=== PATIENT | female | born 2000 | race Caucasian/White ===

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

== ENCOUNTER 2022-03-26 23:00 | Day surgery (SDC) | payer BC ==
[2022-03-26 23:32] VITALS: BMI 43.3
[2022-03-26] MEDS ORDERED: hydrALAZINE 20 MG/ML VIAL SLOW IVP PRN (23:49)
[2022-03-27 00:20] LABS: Fetal Membranes Rupture No Membranes Rupture (No Rupture)
== END 2022-03-27 00:37 | disposition home or self-care (01) ==
LOC: CSHLD/OP 23:00
PROVIDERS: ATTEND Obstetrics & Gynecology
DX: O99.891 Other specified diseases and conditions complicating pregnancy (principal); N89.8 Other specified noninflammatory disorders of vagina; Z3A.24 24 weeks gestation of pregnancy; Z79.899 Other long term (current) drug therapy
CPT/HCPCS: 84112; 99283

== ENCOUNTER 2022-04-12 15:49 | Day surgery (SDC) | payer BC ==
[2022-04-12 16:33] VITALS: BMI 41.5
[2022-04-12] MEDS ORDERED: hydrALAZINE 20 MG/ML VIAL SLOW IVP PRN (16:59)
[2022-04-12 17:46] LABS: Bilirubin 1+ (Negative); Blood, Urine Negative (Negative); Clarity Slightly Cloudy (Clear); Glucose, Urine (Dipstick) Normal (Negative); Ketone, Urine Negative (Negative); Leukocyte 25 (Negative); Nitrite Negative (Negative); Protein, Urine (Dipstick) 15 mg/dl (Neg-Trace)
[2022-04-12 17:53] LABS: Urine Culture Reflex No No
[2022-04-12] MEDS ORDERED: Acetaminophen 500 MG TAB PO SCH (18:00)
[2022-04-12 18:07] LABS: Bacteria/HPF 1+ HPF (None Seen); RBC/HPF 0-3 HPF (0-3); WBC/HPF 0-3 HPF (0-3)
[2022-04-12 18:08] LABS: Other Microscopic Description SEE COMMENTS
[2022-04-13 16:55] LABS: Chlamydia by PCR Not Detected (NotDetected); GC by PCR Not Detected (NotDetected)
== END 2022-04-12 18:30 | disposition home or self-care (01) ==
LOC: CSHLD/OP 15:49
PROVIDERS: ATTEND Obstetrics & Gynecology
DX: O99.891 Other specified diseases and conditions complicating pregnancy (principal); R10.30 Lower abdominal pain, unspecified; O99.512 Diseases of the respiratory system complicating pregnancy, second trimester; J45.909 Unspecified asthma, uncomplicated; Z3A.26 26 weeks gestation of pregnancy; Z86.16 Personal history of COVID-19
CPT/HCPCS: 81001; 87480; 87491; 87510; 87591; 87660; 99283

== ENCOUNTER 2022-04-17 19:56 | Day surgery (SDC) | payer BC ==
[2022-04-17 20:23] VITALS: BMI 43.9
[2022-04-17] MEDS ORDERED: hydrALAZINE 20 MG/ML VIAL SLOW IVP PRN (20:34)
[2022-04-17] MEDS ORDERED: Lactated Ringer's 1,000 ML IV SCH (20:45)
[2022-04-17] MEDS ORDERED: Acetaminophen 500 MG TAB PO SCH (20:45)
[2022-04-17] MEDS ORDERED: diphenhydrAMINE 50 MG/ML VIAL IVP SCH (21:00)
[2022-04-17] MEDS: Metoclopramide HCl 10 MG/2 ML VIAL IVP SCH ×2 (21:24→22:15)
[2022-04-17 21:29] LABS: #Monocytes 0.5 10x3/uL (0.0-1.1); #Neutrophils 6.8 10x3/uL (1.5-8.4); %Basophils 0.1 % (0.0-2.0); %Eosinophils 0.1 % (0.0-6.0); %Lymphocytes 19.1 % (18.0-47.0); %Monocytes 5.6 % (0.0-10.0); %Neutrophils 74.8 % (40.0-75.0); Hemoglobin 12.3 g/dL (12.0-15.5); Mean Corpuscular HGB CONC 36.4 g/dL (32.0-36.0); Mean Corpuscular Hemoglobin 32.2 pg (27.0-33.0); Mean Corpuscular Volume 88.5 fl (81.6-98.3); Mean Platelet Volume 9.1 fl (7.4-10.4); Platelet Count 301 10x3/uL (150-450); RBC Distribution Width 12.7 % (11.5-14.5); Red Blood Cell (RBC) Count 3.82 10x6/uL (3.90-5.03); White Blood Cell (WBC) Count 9.1 10x3/uL (3.5-10.5)
[2022-04-17 22:15] LABS: ALT (SGPT) 24 U/L (8-55); AST (SGOT) 19 U/L (5-34); Albumin 3.6 g/dL (3.5-5.0); Alkaline Phosphatase 148 U/L (40-100); Anion Gap 13 mmol/L (10-20); BUN (Urea Nitrogen) 8 mg/dL (7.0-18.7); Bilirubin, Total 1.2 mg/dL (0.2-1.2); Calc. Creatinine Clearance 274 mL/min (70-130); Calcium 9.2 mg/dL (7.8-10.44); Carbon Dioxide 23 mmol/L (22-29); Chloride 105 mmol/L (98-107); Glucose 82 mg/dL (70-105); Potassium 4.2 mmol/L (3.5-5.1); Protein, Total 6.6 g/dL (6.0-8.3); Sodium 137 mmol/L (136-145)
[2022-04-17 22:30] LABS: Bilirubin 3+ (Negative); Blood, Urine Negative (Negative); Clarity Clear (Clear); Glucose, Urine (Dipstick) Normal (Negative); Ketone, Urine 5 mg/dL (Negative); Leukocyte 100 (Negative); Nitrite Positive (Negative); Protein, Urine (Dipstick) 30 mg/dl (Neg-Trace); Urobilinogen 12 mg/dL (Less than 2)
[2022-04-17 22:38] LABS: Bacteria/HPF 1+ HPF (None Seen); Calcium Oxalate Crystals 1+ HPF (None Seen); RBC/HPF 0-3 HPF (0-3); Squamous Epithelial Greater than 50 HPF (0-3); WBC/HPF 21-50 HPF (0-3)
[2022-04-17 22:46] LABS: Creatinine, Urine 416.19 mg/dL (47-110)
== END 2022-04-17 23:00 | disposition home or self-care (01) ==
LOC: CSHLD/OP 19:56
PROVIDERS: ATTEND Obstetrics & Gynecology
DX: O99.352 Diseases of the nervous system complicating pregnancy, second trimester (principal); G43.909 Migraine, unspecified, not intractable, without status migrainosus; O99.212 Obesity complicating pregnancy, second trimester; O99.612 Diseases of the digestive system complicating pregnancy, second trimester; K21.9 Gastro-esophageal reflux disease without esophagitis; O10.912 Unspecified pre-existing hypertension complicating pregnancy, second trimester; Z3A.27 27 weeks gestation of pregnancy; Z79.899 Other long term (current) drug therapy
CPT/HCPCS: 36415; 80053; 81001; 82570; 84156; 85025; 96360; 96374; 96375; 99284; J1200; J2765

== ENCOUNTER → 2022-04-22 | Day surgery (SDC) | payer BC | LOC: CSHSDC/OP 14:25 | PROVIDERS: ATTEND Obstetrics & Gynecology | DX: O36.0190 Maternal care for anti-D [Rh] antibodies, unspecified trimester, not applicable or unspecified (principal); Z3A.00 Weeks of gestation of pregnancy not specified ==

== ENCOUNTER 2022-04-30 14:20 | Day surgery (SDC) | payer BC | END 2022-04-30 15:25 | disposition home or self-care (01) | LOC: CSHSDC/OP 14:20 | PROVIDERS: ATTEND Obstetrics & Gynecology | DX: Z29.13 Encounter for prophylactic Rho(D) immune globulin (principal); Z3A.29 29 weeks gestation of pregnancy; Z67.41 Type O blood, Rh negative | CPT/HCPCS: 96372 ==

== ENCOUNTER 2022-05-29 10:58 | Day surgery (SDC) | payer BC ==
[2022-05-29] MEDS ORDERED: hydrALAZINE 20 MG/ML VIAL SLOW IVP PRN (12:08)
== END 2022-05-29 14:03 | disposition home or self-care (01) ==
LOC: CSHLD/OP 10:58
PROVIDERS: ATTEND Obstetrics & Gynecology
DX: O36.8130 Decreased fetal movements, third trimester, not applicable or unspecified (principal); Z3A.33 33 weeks gestation of pregnancy
CPT/HCPCS: 76819

== ENCOUNTER 2022-05-30 16:14 | Day surgery (SDC) | payer BC ==
[2022-05-30 16:54] VITALS: BMI 42.7
[2022-05-30] MEDS ORDERED: hydrALAZINE 20 MG/ML VIAL SLOW IVP PRN (18:01)
[2022-05-30] MEDS ORDERED: Lactated Ringer's 1,000 ML IV SCH ×2 (18:15→20:15)
[2022-05-30 18:23] LABS: Bilirubin 3+ (Negative); Blood, Urine Negative (Negative); Clarity Clear (Clear); Glucose, Urine (Dipstick) Normal (Negative); Ketone, Urine 5 mg/dL (Negative); Leukocyte 25 (Negative); Nitrite Negative (Negative); Protein, Urine (Dipstick) 30 mg/dl (Neg-Trace); Urobilinogen 12 mg/dL (Less than 2)
[2022-05-30 18:29] LABS: Urine Culture Reflex No No
[2022-05-30 18:32] LABS: RBC/HPF None Seen HPF (0-3); Squamous Epithelial 0-3 HPF (0-3); WBC/HPF 0-3 HPF (0-3)
[2022-05-30 18:33] LABS: Bacteria/HPF 2+ HPF (None Seen)
[2022-05-30] MEDS ORDERED: CEFAZOLIN 2 GM in Sodium Chloride 0.9% 100 ML IVPB SCH (20:15)
[2022-05-30] MEDS ORDERED: Butorphanol Tartrate 1 MG/ML VIAL SLOW IVP SCH (22:30)
[2022-05-30] MEDS ORDERED: Cephalexin 500 MG CAP PO SCH (23:59)
== END 2022-05-31 04:05 | disposition home or self-care (01) ==
LOC: CSHLD/OP 16:14
PROVIDERS: ATTEND Obstetrics & Gynecology
DX: O47.03 False labor before 37 completed weeks of gestation, third trimester (principal); O36.8130 Decreased fetal movements, third trimester, not applicable or unspecified; O99.891 Other specified diseases and conditions complicating pregnancy; N89.8 Other specified noninflammatory disorders of vagina; R03.0 Elevated blood-pressure reading, without diagnosis of hypertension; O09.293 Supervision of pregnancy with other poor reproductive or obstetric history, third trimester; Z3A.33 33 weeks gestation of pregnancy; Z86.19 Personal history of other infectious and parasitic diseases; Z79.899 Other long term (current) drug therapy
CPT/HCPCS: 81001; 87086; 87480; 87510; 87660; J0595; J0690; J3490

== ENCOUNTER 2022-06-11 16:17 | Day surgery (SDC) | payer BC ==
[2022-06-11 17:05] VITALS: BMI 44.3
[2022-06-11 17:55] LABS: Fetal Membranes Rupture No Membranes Rupture (No Rupture)
[2022-06-11] MEDS ORDERED: hydrALAZINE 20 MG/ML VIAL SLOW IVP PRN (18:15)
== END 2022-06-11 21:05 | disposition home or self-care (01) ==
LOC: CSHLD/OP 16:17
PROVIDERS: ATTEND Obstetrics & Gynecology
DX: O99.891 Other specified diseases and conditions complicating pregnancy (principal); N89.8 Other specified noninflammatory disorders of vagina; O09.293 Supervision of pregnancy with other poor reproductive or obstetric history, third trimester; Z3A.35 35 weeks gestation of pregnancy
CPT/HCPCS: 76815; 84112; 87480; 87510; 87660; 99283

== ENCOUNTER 2022-06-23 14:24 | Emergency (ER) | payer BC ==
[2022-06-23] MEDS ORDERED: Albuterol Sulfate 2.5 mg/3 ml Neb ONE (15:12)
[2022-06-23 16:07] LABS: SARS-CoV-2 NAA Rapid Test DETECTED (NotDetected)
== END 2022-06-23 18:00 | disposition home or self-care (01) ==
LOC: CSHERS 14:24 → EDSTATUS 14:26 → CSHERS 18:00
DX: O98.513 Other viral diseases complicating pregnancy, third trimester (principal); U07.1 COVID-19; O99.513 Diseases of the respiratory system complicating pregnancy, third trimester; J45.909 Unspecified asthma, uncomplicated; Z3A.37 37 weeks gestation of pregnancy
CPT/HCPCS: 71045; 93005; J7611

== ENCOUNTER 2022-06-26 13:59 | Inpatient (IN) | payer BC ==
[~2022-06-26 13:59] MED LIST: Bupivacaine/Epinephrine 0.25% 30 ML VIAL ONE
[2022-06-26] MEDS ORDERED: hydrALAZINE 20 MG/ML VIAL SLOW IVP PRN ×2 (15:18→17:05)
[2022-06-26 15:35] LABS: Bilirubin 3+ (Negative); Blood, Urine Negative (Negative); Clarity Slightly Cloudy (Clear); Glucose, Urine (Dipstick) Normal (Negative); Ketone, Urine Negative (Negative); Leukocyte 100 (Negative); Nitrite Negative (Negative); Protein, Urine (Dipstick) 30 mg/dl (Neg-Trace); Specific Gravity, Urine 1.025 (1.002-1.036)
[2022-06-26 15:51] LABS: Urine Culture Reflex No No
[2022-06-26 15:52] LABS: Bacteria/HPF 2+ HPF (None Seen); RBC/HPF 0-3 HPF (0-3)
[2022-06-26] MEDS ORDERED: Lidocaine 1% (PF) 30 ML VIAL SC PRN (17:05)
[2022-06-26] MEDS ORDERED: Promethazine HCl 25 MG/ML VIAL IM PRN (17:05)
[2022-06-26] MEDS ORDERED: NS w/ Oxytocin 30 units 500 ML IV SCH (17:15)
[2022-06-26 17:48] LABS: Hemoglobin 12.9 g/dL (12.0-15.5); Mean Corpuscular HGB CONC 34.9 g/dL (32.0-36.0); Mean Corpuscular Hemoglobin 30.7 pg (27.0-33.0); Mean Corpuscular Volume 88.1 fl (81.6-98.3); Mean Platelet Volume 9.6 fl (7.4-10.4); Platelet Count 288 10x3/uL (150-450); White Blood Cell (WBC) Count 6.6 10x3/uL (3.5-10.5)
[2022-06-26 18:03] LABS: ALT (SGPT) 22 U/L (8-55); AST (SGOT) 19 U/L (5-34); Albumin 3.2 g/dL (3.5-5.0); Alkaline Phosphatase 242 U/L (40-100); Anion Gap 14 mmol/L (10-20); BUN (Urea Nitrogen) 7 mg/dL (7.0-18.7); Calc. Creatinine Clearance 0 mL/min (70-130); Carbon Dioxide 20 mmol/L (22-29); Chloride 104 mmol/L (98-107); Estimated GFR 129; Globulin 2.6 g/dL (2.4-3.5); Glucose 81 mg/dL (70-105); Potassium 4.4 mmol/L (3.5-5.1); Protein, Total 5.8 g/dL (6.0-8.3); Sodium 134 mmol/L (136-145)
[2022-06-26 18:21] LABS: Hep B Surf Ag Non-Reactive S/CO (NonReactive); Syphilis Antibody Nonreactive (Nonreactive); Syphilis Antibody Index 0.03 S/CO (<1.00 Non-Reactive)
[2022-06-26 18:27] LABS: HBSAg Index 0.17 S/CO (0-0.99)
[2022-06-26 18:42] VITALS: BMI 46.0
[2022-06-27] MEDS ORDERED: Calcium Carbonate 500 MG ChewTAB PO PRN (00:04)
[2022-06-27] MEDS ORDERED: Ibuprofen 800 MG TAB PO PRN (00:18)
[2022-06-27] MEDS ORDERED: Diphenoxylate HCl/Atropine Tablet PO PRN ×2 (00:18)
[2022-06-27] MEDS ORDERED: Misoprostol 200 MCG TAB PR PRN (00:18)
[2022-06-27] MEDS ORDERED: Docusate 100 MG CAP PO PRN (00:18)
[2022-06-27] MEDS ORDERED: Zolpidem Tartrate 5 MG TAB PO PRN (00:18)
[2022-06-27] MEDS ORDERED: Promethazine HCl 25 MG/ML VIAL IM PRN (00:18)
[2022-06-27] MEDS ORDERED: Acetaminophen 500 MG TAB PO PRN (00:18)
[2022-06-27] MEDS ORDERED: Carboprost 250 MCG/ML AMP IM PRN (00:18)
[2022-06-27] MEDS ORDERED: HYDROcodone/Acetaminophen 5/325 mg Tablet PO PRN (00:18)
[2022-06-27] MEDS ORDERED: Ondansetron PF 4 MG/2 ML Vial IVP PRN (00:18)
[2022-06-27] MEDS ORDERED: hydrALAZINE 20 MG/ML VIAL SLOW IVP PRN (00:18)
[2022-06-27] MEDS ORDERED: Lidocaine 1% (PF) 30 ML VIAL SC PRN (00:18)
[2022-06-27] MEDS ORDERED: NS w/ Oxytocin 30 units 500 ML IV SCH ×2 (00:30)
[2022-06-27] MEDS ORDERED: Penicillin G Potassium 5 MILL.UNITS in Sodium Chloride 0.9% 100 ML IVPB SCH (00:30)
[2022-06-27] MEDS ORDERED: Lactated Ringer's 1,000 ML IV SCH (00:30)
[2022-06-27] MEDS: Misoprostol 100 MCG TAB VAG SCH ×4 (01:20→21:04)
[2022-06-27 02:12] LABS: HIV (1/2) Antibody/Antigen Non-Reactive (NonReactive); HIV 1/2 INDEX 0.09 S/CO (<1.00)
[2022-06-27] MEDS: Ondansetron PF 4 MG/2 ML Vial IVP PRN ×3 (03:57→20:35)
[2022-06-27] MEDS ORDERED: Penicillin G Potassium 5 MILL.UNITS VIAL ONE (12:51)
[2022-06-27] MEDS ORDERED: Sodium Chloride 0.9% 100 ML ONE (12:51)
[2022-06-27] MEDS: Penicillin G 2.5 MILL.units 2.5 MILL.UNITS in Premix Bag 1 BAG IVPB SCH ×2 (17:01→20:52)
[2022-06-27] MEDS: Lactated Ringer's 1,000 ML IV SCH (18:04)
[2022-06-28] MEDS ORDERED: Misoprostol 200 MCG TAB ONE (00:36)
[2022-06-28] MEDS ORDERED: Carboprost 250 MCG/ML AMP ONE (00:36)
[2022-06-28] MEDS: Misoprostol 100 MCG TAB VAG SCH ×4 (02:06→23:58)
[2022-06-28] MEDS: Penicillin G 2.5 MILL.units 2.5 MILL.UNITS in Premix Bag 1 BAG IVPB SCH ×6 (02:10→23:57)
[2022-06-28] MEDS: Ondansetron PF 4 MG/2 ML Vial IVP PRN ×2 (03:47→11:29)
[2022-06-28] MEDS ORDERED: Fentanyl 2 mcg/Bup 0.1% Cadd 100 ML ONE (13:23)
[2022-06-28] MEDS ORDERED: diphenhydrAMINE 50 MG/ML VIAL IVP PRN (14:11)
[2022-06-28] MEDS ORDERED: Promethazine HCl 25 MG/ML VIAL IM PRN ×2 (14:11→23:50)
[2022-06-28] MEDS ORDERED: Ondansetron PF 4 MG/2 ML Vial IVP PRN ×2 (14:11→23:50)
[2022-06-28] MEDS ORDERED: Acetaminophen 325 MG TAB PO PRN (14:11)
[2022-06-28] MEDS ORDERED: Lactated Ringer's 500 ML IV PRN (14:11)
[2022-06-28] MEDS ORDERED: ePHEDrine Sulfate 50 MG/10 ML VIAL SLOW IVP PRN (14:11)
[2022-06-28] MEDS ORDERED: Naloxone HCl 0.4 mg/ml Vial IVP PRN ×2 (14:11)
[2022-06-28] MEDS ORDERED: Moisturizing Cream (Eucerin) 113 GM JAR TOP PRN (14:11)
[2022-06-28] MEDS ORDERED: Fentanyl 2 mcg/Bupivacaine 0.1% Cassette 100 ML EPIDURAL SCH (14:15)
[2022-06-28] MEDS ORDERED: Communication Order-Pharmacy FS SCH (14:15)
[2022-06-28] MEDS ORDERED: Fentanyl 100 MCG/2 ML VIAL ONE ×2 (16:14→19:29)
[2022-06-28] MEDS ORDERED: SODIUM CHLORIDE 0.9% EPIDURAL SCH (20:00)
[2022-06-28] MEDS ORDERED: FENTANYL CITRATE EPIDURAL SCH (20:00)
[2022-06-28] MEDS ORDERED: BUPIVACAINE 0.5% EPIDURAL SCH (20:00)
[2022-06-28] MEDS ORDERED: Lidocaine 1% (PF) 30 ML VIAL ONE (20:59)
[2022-06-28] MEDS ORDERED: Measles/Mumps/Rubella 10 MCG/0.5 ML VIAL SC ONE (23:50)
[2022-06-28] MEDS ORDERED: Zolpidem Tartrate 5 MG TAB PO PRN (23:50)
[2022-06-28] MEDS ORDERED: Boostrix 0.5 ML (Tdap) VIAL IM ONE (23:50)
[2022-06-28] MEDS ORDERED: HYDROcodone/Acetaminophen 5/325 mg Tablet PO PRN (23:50)
[2022-06-28] MEDS ORDERED: Milk Of Magnesia 30 ML UDCUP PO PRN (23:50)
[2022-06-28] MEDS ORDERED: diphenhydrAMINE 25 MG CAP PO PRN (23:50)
[2022-06-28] MEDS ORDERED: Bisacodyl 10 MG SUPP PR PRN (23:50)
[2022-06-28] MEDS ORDERED: Benzocaine-Menthol 82.5 ML CAN TOP PRN (23:50)
[2022-06-28] MEDS ORDERED: NS w/ Oxytocin 30 units 500 ML IV SCH (23:50)
[2022-06-28] MEDS ORDERED: Misoprostol 200 MCG TAB VAG PRN (23:50)
[2022-06-28] MEDS ORDERED: Preparation H Ointment 28 GM TUBE PR PRN (23:50)
[2022-06-28] MEDS ORDERED: hydrALAZINE 20 MG/ML VIAL SLOW IVP PRN (23:50)
[2022-06-28] MEDS ORDERED: Varicella virus, LIVE 0.5 ML VIAL SC ONE (23:50)
[2022-06-28] MEDS ORDERED: Lanolin Ointment 7 GM TUBE TOP PRN (23:50)
[2022-06-28] MEDS: Lactated Ringer's 1,000 ML IV SCH ×2 (23:58→23:59)
[2022-06-29 05:00] LABS: Hemoglobin 11.8 g/dL (12.0-15.5); Mean Corpuscular HGB CONC 35.5 g/dL (32.0-36.0); Mean Corpuscular Hemoglobin 31.1 pg (27.0-33.0); Mean Corpuscular Volume 87.4 fl (81.6-98.3); Mean Platelet Volume 9.7 fl (7.4-10.4); Platelet Count 233 10x3/uL (150-450); RBC Distribution Width 12.8 % (11.5-14.5); White Blood Cell (WBC) Count 12.5 10x3/uL (3.5-10.5)
[2022-06-29] MEDS: Ibuprofen 800 MG TAB PO SCH ×3 (06:19→21:33)
[2022-06-29] MEDS: Ferrous Sulfate 325 MG TAB PO SCH ×2 (08:07→15:51)
[2022-06-29] MEDS: Docusate 100 MG CAP PO SCH ×2 (09:14→21:33)
[2022-06-29] MEDS: Prenatal Vitamin 1 TAB PO SCH (09:14)
[2022-06-29 20:47] VITALS: TEMP 97.8
[2022-06-30] MEDS: Ibuprofen 800 MG TAB PO SCH ×2 (05:54→13:21)
[2022-06-30] MEDS: Ferrous Sulfate 325 MG TAB PO SCH (07:29)
[2022-06-30] MEDS: Prenatal Vitamin 1 TAB PO SCH (07:46)
[2022-06-30] MEDS: Docusate 100 MG CAP PO SCH (07:47)
[2022-06-30 07:57] VITALS: BP 125/60
== END 2022-06-30 13:30 | disposition home or self-care (01) | DRG 805 ==
LOC: CSHLD/OP 13:59 → CSHLD 18:25 → CSHPP 06-29 00:19
PROVIDERS: ADMIT Obstetrics & Gynecology; ATTEND Obstetrics & Gynecology
PROC: 3E0P7VZ Introduction of Hormone into Female Reproductive, Via Natural or Artificial Opening (ICD-10-PCS; 2022-06-27)
PROC: 10E0XZZ Delivery of Products of Conception, External Approach (ICD-10-PCS; principal; 2022-06-28)
PROC: 10907ZC Drainage of Amniotic Fluid, Therapeutic from Products of Conception, Via Natural or Artificial Opening (ICD-10-PCS; 2022-06-28)
PROC: 10H07YZ Insertion of Other Device into Products of Conception, Via Natural or Artificial Opening (ICD-10-PCS; 2022-06-28)
DX: O36.8130 Decreased fetal movements, third trimester, not applicable or unspecified (principal); U07.1 COVID-19; Z37.0 Single live birth; O98.52 Other viral diseases complicating childbirth; O10.92 Unspecified pre-existing hypertension complicating childbirth; O41.03X0 Oligohydramnios, third trimester, not applicable or unspecified; Z3A.37 37 weeks gestation of pregnancy; O26.893 Other specified pregnancy related conditions, third trimester; Z67.41 Type O blood, Rh negative; K21.9 Gastro-esophageal reflux disease without esophagitis; J45.909 Unspecified asthma, uncomplicated; O99.52 Diseases of the respiratory system complicating childbirth; O99.62 Diseases of the digestive system complicating childbirth; Z79.899 Other long term (current) drug therapy; E66.01 Morbid (severe) obesity due to excess calories; O99.214 Obesity complicating childbirth; O70.0 First degree perineal laceration during delivery; O71.82 Other specified trauma to perineum and vulva
CPT/HCPCS: 36416; 76819; 80053; 81001; 85027; 86780; 86850; 86870; 86900; 86901; 87340; 87389; J0595; J2001; J2405; J2540; J2550; J2590; J3010; J3490; J7120

== ENCOUNTER 2022-10-21 11:28 | Emergency (ER) | payer BC ==
[2022-10-21 12:21] LABS: #Monocytes 0.5 10x3/uL (0.0-1.1); #Neutrophils 5.8 10x3/uL (1.5-8.4); %Basophils 0.4 % (0.0-2.0); %Eosinophils 0.5 % (0.0-6.0); %Lymphocytes 21.6 % (18.0-47.0); %Neutrophils 71.4 % (40.0-75.0); Hemoglobin 13.2 g/dL (12.0-15.5); Mean Corpuscular HGB CONC 34.2 g/dL (32.0-36.0); Mean Corpuscular Hemoglobin 28.1 pg (27.0-33.0); Mean Corpuscular Volume 82.1 fl (81.6-98.3); Platelet Count 380 10x3/uL (150-450); RBC Distribution Width 11.9 % (11.5-14.5); White Blood Cell (WBC) Count 8.1 10x3/uL (3.5-10.5)
[2022-10-21 12:33] LABS: BHCG - Serum Negative (NEGATIVE); Pregs Control Background? CLEAR/WHITE (CLR/WHITE); Pregs Control Bar Appear? YES (CONTROL BAR)
[2022-10-21 12:37] LABS: ALT (SGPT) 32 U/L (8-55); AST (SGOT) 22 U/L (5-34); Albumin 4.2 g/dL (3.5-5.0); Alkaline Phosphatase 116 U/L (40-100); Anion Gap 14 mmol/L (10-20); BUN (Urea Nitrogen) 12 mg/dL (7.0-18.7); Calc. Creatinine Clearance 0 mL/min (70-130); Calcium 9.6 mg/dL (7.8-10.44); Carbon Dioxide 27 mmol/L (22-29); Chloride 104 mmol/L (98-107); Estimated GFR 77; Glucose 92 mg/dL (70-105); Lipase 16 U/L (8-78); Potassium 4.6 mmol/L (3.5-5.1); Protein, Total 7.2 g/dL (6.0-8.3); Sodium 140 mmol/L (136-145)
[2022-10-21 14:24] LABS: Bilirubin Neg (Negative); Blood, Urine 250 (Negative); Clarity Slightly Cloudy (Clear); Glucose, Urine (Dipstick) Normal (Negative); Ketone, Urine Negative (Negative); Leukocyte 500 (Negative); Nitrite Negative (Negative); Protein, Urine (Dipstick) 15 mg/dl (Neg-Trace); Specific Gravity, Urine 1.015 (1.005-1.030); Urobilinogen Normal mg/dL (Less than 2)
[2022-10-21 14:49] LABS: Bacteria/HPF 4+ HPF (None Seen); RBC/HPF 21-50 HPF (0-3); WBC/HPF 21-50 HPF (0-3)
== END 2022-10-21 16:01 | disposition home or self-care (01) ==
LOC: CSHERS 11:28
DX: K59.00 Constipation, unspecified (principal)
CPT/HCPCS: 74019; 80053; 81003; 81015; 83605; 83690; 84703; 85025; 87086

== ENCOUNTER 2022-11-17 16:30 | Emergency (ER) | payer BC ==
[2022-11-17 17:45] LABS: #Monocytes 0.4 10x3/uL (0.0-1.1); #Neutrophils 5.9 10x3/uL (1.5-8.4); %Basophils 0.4 % (0.0-2.0); %Eosinophils 0.5 % (0.0-6.0); %Lymphocytes 21.2 % (18.0-47.0); %Monocytes 5.4 % (0.0-10.0); %Neutrophils 72.3 % (40.0-75.0); Hemoglobin 12.4 g/dL (12.0-15.5); Mean Corpuscular HGB CONC 33.8 g/dL (32.0-36.0); Mean Corpuscular Hemoglobin 27.6 pg (27.0-33.0); Mean Corpuscular Volume 81.7 fl (81.6-98.3); Mean Platelet Volume 8.9 fl (7.4-10.4); Platelet Count 343 10x3/uL (150-450); RBC Distribution Width 12.6 % (11.5-14.5); Red Blood Cell (RBC) Count 4.49 10x6/uL (3.90-5.03); White Blood Cell (WBC) Count 8.1 10x3/uL (3.5-10.5)
[2022-11-17 18:01] LABS: ALT (SGPT) 20 U/L (8-55); AST (SGOT) 18 U/L (5-34); Albumin 4.1 g/dL (3.5-5.0); Alkaline Phosphatase 97 U/L (40-100); Anion Gap 12 mmol/L (10-20); BUN (Urea Nitrogen) 13 mg/dL (7.0-18.7); Bilirubin, Total 0.7 mg/dL (0.2-1.2); Calc. Creatinine Clearance 0 mL/min (70-130); Calcium 9.4 mg/dL (7.8-10.44); Carbon Dioxide 24 mmol/L (22-29); Chloride 106 mmol/L (98-107); Estimated GFR 99; Globulin 2.6 g/dL (2.4-3.5); Glucose 97 mg/dL (70-105); Lipase 18 U/L (8-78); Protein, Total 6.7 g/dL (6.0-8.3); Sodium 138 mmol/L (136-145)
[2022-11-17] MEDS ORDERED: Ketorolac Tromethamine 30 MG/ML VIAL ONE (19:06)
[2022-11-17 21:23] LABS: Bilirubin Neg (Negative); Blood, Urine 250 (Negative); Clarity Clear (Clear); Glucose, Urine (Dipstick) Normal (Negative); Ketone, Urine Negative (Negative); Leukocyte 500 (Negative); Nitrite Negative (Negative); Protein, Urine (Dipstick) 15 mg/dl (Neg-Trace); Specific Gravity, Urine 1.015 (1.005-1.030)
[2022-11-17 21:27] LABS: Pregnancy Test - Urine (BHCG) Negative (Negative)
[2022-11-17 21:28] LABS: Pregu Control Background? CLEAR/WHITE (CLR/WHITE); Pregu Control Bar Appear? YES (CONTROL BAR); Specific Gravity 1.015 (1.002-1.036)
[2022-11-17 21:41] LABS: Bacteria/HPF 1+ HPF (None Seen); RBC/HPF 0-3 HPF (0-3); Squamous Epithelial 0-3 HPF (0-3)
== END 2022-11-17 22:20 | disposition home or self-care (01) ==
LOC: CSHERS 16:30
DX: K80.50 Calculus of bile duct without cholangitis or cholecystitis without obstruction (principal); E66.9 Obesity, unspecified
CPT/HCPCS: 76705; 80053; 81003; 81015; 81025; 83690; 85025; 96361; 96374; J1885

== ENCOUNTER 2022-11-18 09:39 | Emergency (ER) | payer BC ==
[2022-11-18] MEDS ORDERED: Ketorolac Tromethamine 30 MG/ML VIAL ONE (10:15)
[2022-11-18] MEDS ORDERED: Ondansetron PF 4 MG/2 ML Vial ONE (10:15)
[2022-11-18] MEDS ORDERED: Pantoprazole 40 MG VIAL ONE (10:16)
[2022-11-18 11:48] LABS: #Monocytes 0.4 10x3/uL (0.0-1.1); #Neutrophils 4.6 10x3/uL (1.5-8.4); %Basophils 0.3 % (0.0-2.0); %Eosinophils 0.6 % (0.0-6.0); %Lymphocytes 24.7 % (18.0-47.0); %Monocytes 5.7 % (0.0-10.0); %Neutrophils 68.4 % (40.0-75.0); Hemoglobin 12.7 g/dL (12.0-15.5); Mean Corpuscular HGB CONC 33.9 g/dL (32.0-36.0); Mean Corpuscular Hemoglobin 27.9 pg (27.0-33.0); Mean Corpuscular Volume 82.2 fl (81.6-98.3); Platelet Count 331 10x3/uL (150-450); RBC Distribution Width 12.4 % (11.5-14.5); Red Blood Cell (RBC) Count 4.56 10x6/uL (3.90-5.03); White Blood Cell (WBC) Count 6.7 10x3/uL (3.5-10.5)
[2022-11-18 12:16] LABS: ALT (SGPT) 18 U/L (8-55); AST (SGOT) 14 U/L (5-34); Albumin 3.9 g/dL (3.5-5.0); Alkaline Phosphatase 93 U/L (40-100); Anion Gap 11 mmol/L (10-20); BUN (Urea Nitrogen) 13 mg/dL (7.0-18.7); Bilirubin, Total 0.9 mg/dL (0.2-1.2); Calc. Creatinine Clearance 0 mL/min (70-130); Calcium 9.1 mg/dL (7.8-10.44); Carbon Dioxide 24 mmol/L (22-29); Chloride 107 mmol/L (98-107); Estimated GFR 102; Globulin 2.5 g/dL (2.4-3.5); Glucose 83 mg/dL (70-105); Lipase 11 U/L (8-78); Potassium 4.3 mmol/L (3.5-5.1); Protein, Total 6.4 g/dL (6.0-8.3); Sodium 138 mmol/L (136-145)
[2022-11-18] MEDS ORDERED: Morphine 4 MG/ML VIAL ONE ×2 (13:11→14:32)
== END 2022-11-18 15:10 | disposition home or self-care (01) ==
LOC: CSHERS 09:39
DX: K80.50 Calculus of bile duct without cholangitis or cholecystitis without obstruction (principal)
CPT/HCPCS: 36415; 74176; 80053; 83690; 85025; 96374; 96375; 96376; C9113; J1885; J2270; J2405

== ENCOUNTER 2025-08-05 15:03 | Emergency (ER) | payer BC ==
[2025-08-05 15:59] LABS: #Basophils Less than 0.03 10x3/uL (0.0-0.2); #Eosinophils Less than 0.03 10x3/uL (0.0-0.5); #Monocytes 0.42 10x3/uL (0.0-1.1); #Neutrophils 4.12 10x3/uL (1.5-8.4); %Basophils 0.1 % (0.0-2.0); %Eosinophils 0.3 % (0.0-6.0); %Lymphocytes 31.5 % (18.0-47.0); %Monocytes 6.3 % (0.0-10.0); %Neutrophils 61.7 % (40.0-75.0); Hematocrit 40.4 % (34.9-44.5); Hemoglobin 13.9 g/dL (12.0-15.5); Mean Corpuscular Hemoglobin 30.1 pg (27.0-33.0); Mean Corpuscular Volume 87.4 fL (81.6-98.3); Platelet Count 255 10x3/uL (150-450); Red Blood Cell (RBC) Count 4.62 10x6/uL (3.90-5.03); White Blood Cell (WBC) Count 6.69 10x3/uL (3.5-10.5)
[2025-08-05 16:15] LABS: ALT (SGPT) 38 U/L (Less than 34); AST (SGOT) 34 U/L (11-34); Albumin 4.4 g/dL (3.1-4.5); Alkaline Phosphatase 72 U/L (40-110); Anion Gap 14 mmol/L (10-20); BUN (Urea Nitrogen) 9 mg/dL (7.0-18.7); Bilirubin, Total 1.3 mg/dL (0.3-1.2); Calc. Creatinine Clearance 0 mL/min (70-130); Calcium 9.2 mg/dL (7.8-10.44); Carbon Dioxide 22 mmol/L (22-29); Chloride 104 mmol/L (98-107); Globulin 2.9 g/dL (2.4-3.5); Glucose 84 mg/dL (70-105); Potassium 3.9 mmol/L (3.5-5.1); Sodium 136 mmol/L (136-145)
[2025-08-05 16:19] LABS: Glucose, Urine (Dipstick) Normal (Negative); Leukocyte 25 (Negative); Protein, Urine (Dipstick) 15 mg/dl (Neg-Trace); Specific Gravity, Urine 1.020 (1.005-1.030)
[2025-08-05 16:48] LABS: Bacteria/HPF 1+ HPF (None Seen); CAUTI Indications for Culture Pelvic or flank pain; RBC/HPF None Seen HPF (0-3); Urine Culture Reflex No No; WBC/HPF 0-3 HPF (0-3)
== END 2025-08-05 19:04 | disposition home or self-care (01) ==
LOC: CSHERS 15:03
DX: O20.9 Hemorrhage in early pregnancy, unspecified (principal); O23.41 Unspecified infection of urinary tract in pregnancy, first trimester; N39.0 Urinary tract infection, site not specified; Z3A.01 Less than 8 weeks gestation of pregnancy
CPT/HCPCS: 36415; 76801; 80053; 81001; 84702; 85025; 87081; 87428; 87430; 93976

== ENCOUNTER 2025-11-01 21:45 | Emergency (ER) | payer BC ==
[2025-11-01 22:37] LABS: #Basophils 0.03 10x3/uL (0.0-0.2); #Eosinophils 0.04 10x3/uL (0.0-0.5); #Monocytes 0.51 10x3/uL (0.0-1.1); #Neutrophils 7.33 10x3/uL (1.5-8.4); %Basophils 0.3 % (0.0-2.0); %Eosinophils 0.4 % (0.0-6.0); %Lymphocytes 17.7 % (18.0-47.0); %Monocytes 5.3 % (0.0-10.0); %Neutrophils 76.0 % (40.0-75.0); Hematocrit 32.3 % (34.9-44.5); Hemoglobin 12.0 g/dL (12.0-15.5); Mean Corpuscular Hemoglobin 32.4 pg (27.0-33.0); Mean Corpuscular Volume 87.3 fL (81.6-98.3); Platelet Count 304 10x3/uL (150-450); Red Blood Cell (RBC) Count 3.70 10x6/uL (3.90-5.03); White Blood Cell (WBC) Count 9.65 10x3/uL (3.5-10.5)
[2025-11-01 22:51] LABS: BHCG - Serum POSITIVE (NEGATIVE); Pregs Control Background? CLEAR/WHITE (CLR/WHITE); Pregs Control Bar Appear? YES (CONTROL BAR)
[2025-11-01 22:58] LABS: ALT (SGPT) 21 U/L (Less than 34); AST (SGOT) 19 U/L (11-34); Albumin 3.2 g/dL (3.1-4.5); Alkaline Phosphatase 93 U/L (40-110); Anion Gap 15 mmol/L (10-20); BUN (Urea Nitrogen) 8 mg/dL (7.0-18.7); Bilirubin, Total 1.0 mg/dL (0.3-1.2); Calc. Creatinine Clearance 0 mL/min (70-130); Calcium 8.8 mg/dL (7.8-10.44); Carbon Dioxide 18 mmol/L (22-29); Chloride 107 mmol/L (98-107); Globulin 3.1 g/dL (2.4-3.5); Glucose 106 mg/dL (70-105); Lipase 14 U/L (8-78); Potassium 3.6 mmol/L (3.5-5.1); Sodium 136 mmol/L (136-145)
[2025-11-01 23:59] LABS: Glucose, Urine (Dipstick) Normal (Negative); Leukocyte 500 (Negative); Protein, Urine (Dipstick) 30 mg/dl (Neg-Trace); Specific Gravity, Urine 1.020 (1.005-1.030)
[2025-11-02 00:10] LABS: Bacteria/HPF 1+ HPF (None Seen); CAUTI Indications for Culture Pelvic or flank pain; RBC/HPF 0-3 HPF (0-3)
[2025-11-02 00:11] LABS: Urine Culture Reflex No No
== END 2025-11-02 00:45 | disposition home or self-care (01) ==
LOC: CSHERS 21:45
DX: O9A.212 Injury, poisoning and certain other consequences of external causes complicating pregnancy, second trimester (principal); S30.0XXA Contusion of lower back and pelvis, initial encounter; O23.42 Unspecified infection of urinary tract in pregnancy, second trimester; N39.0 Urinary tract infection, site not specified; I10 Essential (primary) hypertension; K21.9 Gastro-esophageal reflux disease without esophagitis; Z79.899 Other long term (current) drug therapy; Z3A.19 19 weeks gestation of pregnancy; W18.30XA Fall on same level, unspecified, initial encounter
CPT/HCPCS: 36415; 76815; 80053; 81001; 83690; 84703; 85025